=== PATIENT | female | born 1955 | race American Indian/Alaskan Native ===

== ENCOUNTER 2019-01-09 16:16 | Emergency (ER) | payer MEDICARE ==
[2019-01-09 16:35] VITALS: BP 156/91
--- NOTE | 2019-01-09 16:35 | Emergency Department Report ---
Blank Doc - Documentation Documentation: 63 y/o female c/o lip swelling, chest pain and Blood pressure and Headache for the last 3 days.
[2019-01-09 16:58] LABS: Basophils % (Auto) 0.5 % (0.0-1.8); Eosinophils # (Auto) 0.3 K/mm3 (0.0-0.4); Eosinophils % (Auto) 5.1 % (0.0-4.3); Hematocrit 39.3 % (30.3-42.9); Hemoglobin 12.6 gm/dl (10.1-14.3); Lymphocytes # (Auto) 1.7 K/mm3 (1.2-5.4); Lymphocytes % (Auto) 31.1 % (13.4-35.0); Mean Corpuscular HGB Conc 32 % (30-34); Mean Corpuscular Volume 71 fl (79-97); Monocytes # (Auto) 0.4 K/mm3 (0.0-0.8); Monocytes % (Auto) 6.6 % (0.0-7.3); Platelet Count 238 K/mm3 (140-440); Red Cell Distribution Width 17.1 % (13.2-15.2)
--- NOTE | 2019-01-09 17:27 | XRay Report ---
PROCEDURE: XR CHEST ROUTINE 2V TECHNIQUE: Chest radiograph , PA and lateral views. HISTORY: CP COMPARISONS: None . FINDINGS: Heart: Normal. Mediastinum/Vessels: Normal. Lungs/Pleural space: Normal. Bony thorax: No acute osseous abnormality. Life support devices: None. IMPRESSION: No acute cardiopulmonary abnormality. This document is electronically signed by Luara Bowers MD., January 09 2019 05:25:39 PM ET
[2019-01-09 17:34] LABS: Alanine Aminotransferase 12 units/L (7-56); Albumin 4.2 g/dL (3.9-5); BUN/Creatinine Ratio 17; Blood Urea Nitrogen 12 mg/dL (7-17); Calcium 10.1 mg/dL (8.4-10.2); Hemolysis Index 29
[2019-01-09] MEDS ORDERED: TYLENOL PO ONE (19:36)
[2019-01-09] MEDS ORDERED: BENADRYL PO ONE (19:36)
[2019-01-09] MEDS ORDERED: REGLAN PO ONE (19:36)
--- NOTE | 2019-01-09 19:38 | Emergency Department Report ---
ED Chest Pain HPI - General Chief Complaint: Chest Pain Stated Complaint: CHEST PAIN/MOUTH/FACE SWOLLEN/HEADACHE Time Seen by Provider: 01/09/19 19:33 Source: patient Mode of arrival: Ambulatory Limitations: No Limitations - History of Present Illness Initial Comments: pt is a a63 y/o aaf who presents for cp and headache rated as 5/10, pt states recent change in bp medications with similar results, she is now taking hctz 12.5 mg po daily as prescribed by pcp. pain is constant radiating from epigastric region with pressure and bloating, epigastric pain exacerbated headache described as frontal sharp 4/10 , headaches are a recurring problem with htn episodes. There has bee no n/v no dizziness no lightheadedness no sob no back pain no diaphoresis. MD Complaint: chest pain Onset/Timin -: days(s) Onset: during rest Pain Location: epigastric Pain Radiation: none Severity: moderate Severity scale (0 -10): 8 Quality: sharp, pressure Consistency: constant Improves With: antacids, other (bleching ) Worsens With: supine, movement Other Symptoms: burping. denies: cough, leg swelling, palpitations Treatments Prior to Arrival: none - Related Data On Oral Contraceptives: No Home Medications Medication Instructions Recorded Confirmed Last Taken Lovastatin [Altoprev] 20 mg PO QPM 10/30/13 10/30/13 10/30/13 hydroCHLOROthiazide 12.5 mg PO DAILY 10/30/13 10/30/13 10/30/13 [Hydrochlorothiazide] Previous Rx's Medication Instructions Recorded Last Taken Type Meclizine [Antivert] 25 mg PO TID #12 tablet 10/30/13 Unknown Rx Acetaminophen [Non-Aspirin Extra 1,000 mg PO QID PRN #30 tablet 01/09/19 Unknown Rx Strength] Metoclopramide [Reglan] 10 mg PO Q6H PRN #30 tablet 01/09/19 Unknown Rx diphenhydrAMINE [Benadryl CAP] 25 mg PO Q6HR PRN #30 capsule 01/09/19 Unknown Rx Allergies Allergy/AdvReac Type Severity Reaction Status Date / Time Penicillins Allergy Itching Verified 01/09/19 16:18 Heart Score - HEART Score History: Slightly suspicious EKG: Normal Age: 45-65 Risk factors: 1-2 risk factors Troponin: < normal limit HEART Score: 2 ED Review of Systems ROS: Stated complaint: CHEST PAIN/MOUTH/FACE SWOLLEN/HEADACHE Other details as noted in HPI Constitutional: denies: chills, fever Eyes: denies: eye pain, eye discharge, vision change ENT: congestion (sinus congestion). denies: ear pain, throat pain Respiratory: denies: cough, shortness of breath, wheezing Cardiovascular: chest pain Endocrine: no symptoms reported Gastrointestinal: denies: abdominal pain, nausea, diarrhea Genitourinary: denies: urgency, dysuria, discharge Musculoskeletal: denies: back pain, joint swelling, arthralgia Skin: denies: rash, lesions Neurological: headache Psychiatric: anxiety. denies: depression Hematological/Lymphatic: denies: easy bleeding, easy bruising ED Past Medical Hx - Past Medical History Hx Hypertension: Yes Additional medical history: vertigo, HIGH CHOLESTEROL, UTERINE FIBROIDS - Surgical History Past Surgical History?: No - Social History Smoking Status: Never Smoker Substance Use Type: None - Medications Home Medications: Home Medications Medication Instructions Recorded Confirmed Last Taken Type Lovastatin [Altoprev] 20 mg PO QPM 10/30/13 10/30/13 10/30/13 History Meclizine [Antivert] 25 mg PO TID #12 tablet 10/30/13 Unknown Rx hydroCHLOROthiazide 12.5 mg PO DAILY 10/30/13 10/30/13 10/30/13 History [Hydrochlorothiazide] Acetaminophen [Non-Aspirin Extra 1,000 mg PO QID PRN #30 tablet 01/09/19 Unknown Rx Strength] Metoclopramide [Reglan] 10 mg PO Q6H PRN #30 tablet 01/09/19 Unknown Rx diphenhydrAMINE [Benadryl CAP] 25 mg PO Q6HR PRN #30 capsule 01/09/19 Unknown Rx ED Physical Exam - General Limitations: No Limitations General appearance: alert, in no apparent distress - Head Head exam: Present: atraumatic, normocephalic - Eye Eye exam: Present: normal appearance, PERRL, EOMI - ENT ENT exam: Present: normal orophraynx, mucous membranes moist, TM's normal bilaterally, normal external ear exam - Neck Neck exam: Present: normal inspection, full ROM, lymphadenopathy. Absent: tenderness - Respiratory Respiratory exam: Present: normal lung sounds bilaterally. Absent: respiratory distress, wheezes, stridor, chest wall tenderness - Cardiovascular Cardiovascular Exam: Present: regular rate, normal rhythm, normal heart sounds - GI/Abdominal GI/Abdominal exam: Present: soft, tenderness (mild epigastric tenderness to deep palpation), normal bowel sounds. Absent: guarding, rebound, rigid, bruit, hernia - Rectal Rectal exam: Present: deferred - Extremities Exam Extremities exam: Present: normal inspection, full ROM, normal capillary refill. Absent: tenderness, pedal edema, joint swelling, calf tenderness - Back Exam Back exam: Present: normal inspection, full ROM. Absent: tenderness, CVA tenderness (R), CVA tenderness (L), muscle spasm, rash noted - Neurological Exam Neurological exam: Present: alert, oriented X3, CN II-XII intact, normal gait - Psychiatric Psychiatric exam: Present: normal affect, normal mood - Skin Skin exam: Present: warm, dry, intact, normal color. Absent: rash ED Course Vital Signs 01/09/19 16:31 Temperature 98.1 F Pulse Rate 80 Respiratory 18 Rate Blood Pressure 156/91 O2 Sat by Pulse 99 Oximetry CAMRON score - Camron Score Age > 65: (0) No Aspirin use within the Past 7 Days: (0) No 3 or more CAD Risk Factors: (0) No 2 or more Angina events in past 24 hrs: (0) No Known CAD with more than 50% Stenosis: (0) No Elevated Cardiac Markers: (0) No ST Deviation Greater than 0.5mm: (0) No CAMRON Score: 0 ED Medical Decision Making - Lab Data Result diagrams: 01/09/19 16:36 01/09/19 16:36 - Radiology Data Radiology results: report reviewed, image reviewed [address] [address] XRay Report Signed Patient: GRISELDA GAYLE MR#: [id number] : 1955 Acct:[id number] Age/Sex: 63 / F ADM Date: 01/09/19 Loc: ED Attending Dr: Ordering Physician: GIORGIO BRAND Date of Service: 01/09/19 Procedure(s): XR chest routine 2V Accession Number(s): [id number] cc: GIORGIO BRAND Fluoro Time In Minutes: PROCEDURE: XR CHEST ROUTINE 2V TECHNIQUE: Chest radiograph , PA and lateral views. HISTORY: CP COMPARISONS: None . FINDINGS: Heart: Normal. Mediastinum/Vessels: Normal. Lungs/Pleural space: Normal. Bony thorax: No acute osseous abnormality. Life support devices: None. IMPRESSION: No acute cardiopulmonary abnormality. This document is electronically signed by Laura Bowers MD., January 09 2019 05:25:39 PM ET Transcribed By: [facility] Dictated By: LAURA BOWERS MD Electronically Authenticated By: LAURA BOWERS MD Signed Date/Time: 01/09/191726 DD/ 05 TD/TT: 01/09/191705 - Medical Decision Making ekg: nsr, no st elevated mi, cxr: normal , headache is resolved to 0/10 ,Heart score is :0, CAMRON score is: 0 pt is currently a/o x 3, ambulatory with steady gait. pt will follow up with pcp tomorrow, continue bp medications as prescribed, take tylenol, benadryl, reglan prn for headache, Dr. Florence, pt dc'd to home in stable condition at this time. pt verbalized agreement and understanding with discharge plan. Critical care attestation.: If time is entered above; I have spent that time in minutes in the direct care of this critically ill patient, excluding procedure time. ED Disposition Clinical Impression: Headache Qualifiers: Headache type: unspecified Headache chronicity pattern: acute headache Intractability: not intractable Qualified Code(s): R51 - Headache Chest pain Qualifiers: Chest pain type: unspecified Qualified Code(s): R07.9 - Chest pain, unspecified Disposition: DC-01 TO HOME OR SELFCARE Is pt being admited?: No Does the pt Need Aspirin: No Condition: Stable Instructions: Chest Pain (ED), Acute Headache (ED) Prescriptions: diphenhydrAMINE [Benadryl CAP] 25 mg PO Q6HR PRN #30 capsule PRN Reason: Headache Acetaminophen [Non-Aspirin Extra Strength] 1,000 mg PO QID PRN #30 tablet PRN Reason: Headache Metoclopramide [Reglan] 10 mg PO Q6H PRN #30 tablet PRN Reason: Headache Referrals: GRISELDA RUVALCABA EEG TECH-C [Primary Care Provider] - 3-5 Days Forms: Work/School Release Form(ED) Time of Disposition: 22:25
== END 2019-01-09 22:37 | disposition home or self-care (01) ==
LOC: ED 16:16
DX: R07.89 Other chest pain (principal); R51 Headache; I10 Essential (primary) hypertension; E78.00 Pure hypercholesterolemia, unspecified; R10.13 Epigastric pain; Z88.0 Allergy status to penicillin
CPT/HCPCS: 36415; 71046; 80053; 84484; 85025; 93005; 93010; 99284

== ENCOUNTER 2019-06-26 20:15 | Observation (INO) | payer MEDICARE ==
[2019-06-26] MEDS ORDERED: ASPIRIN 325 MG TAB PO ONE (20:47)
--- NOTE | 2019-06-26 20:48 | Event Note ---
ED Screening Note Date of service: 06/26/19 Time: 20:45 ED Screening Note: This is a 64 y.o. F. that presents to the ER with left sided chest pain and numbness to both hands. PMH of HTN Patient states she is unable to get blood pressure down. She went to her PCP last week for hypertension and medication was changed. This initial assessment/diagnostic orders/clinical plan/treatment(s) is/are subject to change based on patients health status, clinical progression and re- assessment by fellow clinical providers in the ED. Further treatment and workup at subsequent clinical providers discretion. Patient/guardian urged not to elope from the ED as their condition may be serious if not clinically assessed and managed. Initial orders include: Labs, EKG, & CXR
--- NOTE | 2019-06-26 21:23 | XRay Report ---
CHEST 2 VIEWS INDICATION / CLINICAL INFORMATION: Chest Pain. COMPARISON: 01/09/19 FINDINGS: SUPPORT DEVICES: None. HEART / MEDIASTINUM: No significant abnormality. LUNGS / PLEURA: No significant pulmonary or pleural abnormality. No pneumothorax. ADDITIONAL FINDINGS: No significant additional findings. IMPRESSION: 1. No acute findings. No change. Signer Name: Harpreet Agiular MD Signed: 06/26/2019 9:19 PM Workstation Name: [id number]
--- NOTE | 2019-06-26 22:29 | Emergency Department Report ---
HPI - General Chief Complaint: Chest Pain Time Seen by Provider: 06/26/19 20:45 - HPI HPI: Room 19 The patient is a 64-year-old female presenting with a chief complaint of headache and chest pain. The patient is afebrile which she's had an intermittent headache. This morning the patient states she developed bilateral hand numbness and sharp intermittent pain in her left chest. Patient denies shortness of breath, nausea/vomiting or diaphoresis. The patient states she developed tingling in her left lower extremity. Patient denies weakness or dy sarthria. The patient states she's never had a stress test or cardiac catheterization ED Past Medical Hx - Past Medical History Previous Medical History?: Yes Hx Hypertension: Yes Additional medical history: vertigo, HIGH CHOLESTEROL, UTERINE FIBROIDS - Surgical History Additional Surgical History: Cataract surgery - Family History Family history: no significant - Social History Smoking Status: Never Smoker Substance Use Type: None - Medications Home Medications: Home Medications Medication Instructions Recorded Confirmed Last Taken Type Hydralazine HCl 50 mg PO BID 06/26/19 06/26/19 Unknown History Loratadine 10 mg PO DAILY 06/26/19 06/26/19 Unknown History methylPREDNISolone [Medrol] 4 mg PO Q12HR 06/26/19 06/26/19 Unknown History raNITIdine HCl [Zantac] 150 mg PO HS 06/26/19 06/26/19 Unknown History ED Review of Systems ROS: Stated complaint: CHEST PAIN/HAND NUMBNESS/HIGH BP Other details as noted in HPI Constitutional: no symptoms reported Eyes: denies: eye pain ENT: denies: throat pain Respiratory: denies: shortness of breath Cardiovascular: chest pain Endocrine: no symptoms reported Gastrointestinal: denies: nausea, vomiting Genitourinary: denies: dysuria Musculoskeletal: denies: back pain Neurological: headache, paresthesias. denies: weakness Physical Exam - Physical Exam Vital Signs: Vital Signs 06/26/19 06/26/19 20:20 21:20 Temperature 98.0 F 98.2 F Pulse Rate 76 64 Respiratory 12 Rate Blood Pressure 183/95 Blood Pressure 165/84 [Left] O2 Sat by Pulse 97 97 Oximetry Physical Exam: GENERAL: The patient is well-developed well-nourished female lying on stretcher not appearing to be in acute distress. [] HEENT: Normocephalic. Atraumatic. Extraocular motions are intact. Patient has moist mucous membranes. NECK: Supple. No meningitic signs are noted. There is no adenopathy noted. CHEST/LUNGS: Clear to auscultation. There is no respiratory distress noted. HEART/CARDIOVASCULAR: Regular. There is no tachycardia. There is no gallop rub or murmur. ABDOMEN: Abdomen is soft, nontender. Patient has normal bowel sounds. There is no abdominal distention. SKIN: There is no rash. There is no edema. There is no diaphoresis. NEURO: The patient is awake, alert, and oriented. The patient is cooperative. The patient has no focal neurologic deficits. The patient has normal speech. Cranial nerves II through XII grossly intact, no drift. Patient able to hold either leg at 30 for 5 seconds count. Equal sensation to light touch bilaterally throughout although patient states she feels as though her left leg is "tingling." NIH stroke scale =0 MUSCULOSKELETAL: There is no evidence of acute injury. ED Course Vital Signs 06/26/19 06/26/19 20:20 21:20 Temperature 98.0 F 98.2 F Pulse Rate 76 64 Respiratory 12 Rate Blood Pressure 183/95 Blood Pressure 165/84 [Left] O2 Sat by Pulse 97 97 Oximetry ED Medical Decision Making - Lab Data Result diagrams: 06/26/19 23:06 06/26/19 23:06 Laboratory Tests 06/26/19 06/26/19 23:06 23:06 WBC 7.6 RBC 5.44 H Hgb 12.5 Hct 39.3 MCV 72 L MCH 23 L MCHC 32 RDW 17.2 H Plt Count 235 Lymph % (Auto) 36.4 H [place] % (Auto) 7.2 Eos % (Auto) 1.1 Baso % (Auto) 0.6 Lymph # 2.8 [place] # 0.5 Eos # 0.1 Baso # 0.0 Seg Neutrophils % 54.7 Seg Neutrophils # 4.2 Sodium 141 Potassium 4.4 Chloride 104.0 Carbon Dioxide 27 Anion Gap 14 BUN 17 Creatinine 0.9 Estimated GFR > 60 BUN/Creatinine Ratio 19 Glucose 94 Calcium 9.9 Troponin T < 0.010 - EKG Data -: EKG Interpreted by Nm EKG shows normal: sinus rhythm Rate: normal - EKG Data When compared to previous EKG there are: previous EKG unavailable Interpretation: other (no ischemic changes seen) 06/26/19 23:33 EKG #2 sinus bradycardia at 55 bpm. - Radiology Data Radiology results: report reviewed (chest x-ray, CT head), image reviewed (chest x-ray, CT head) interpreted by me: Chest x-ray-no focal infiltrates, no pneumothorax [address] [address] XRay Report Signed Patient: GRISELDA GAYLE MR#: [id number] : 1955 Acct:[id number] Age/Sex: 64 / F ADM Date: 06/26/19 Loc: ED Attending Dr: Ordering Physician: ANIA DAS Date of Service: 06/26/19 Procedure(s): XR chest routine 2V Accession Number(s): [id number] cc: ANIA DAS Fluoro Time In Minutes: CHEST 2 VIEWS INDICATION / CLINICAL INFORMATION: Chest Pain. COMPARISON: 01/09/19 FINDINGS: SUPPORT DEVICES: None. HEART / MEDIASTINUM: No significant abnormality. LUNGS / PLEURA: No significant pulmonary or pleural abnormality. No pneumothorax. ADDITIONAL FINDINGS: No significant additional findings. IMPRESSION: 1. No acute findings. No change. Signer Name: Harpreet Aguilar MD Signed: 06/26/2019 9:19 PM Workstation Name: [id number] Transcribed By: DT Dictated By: Brice Aguilar MD Electronically Authenticated By: Brice Aguilar MD Signed Date/Time: 06/26/192118 DD/ 17 TD/TT: [address] [address] Cat Scan Report Signed Patient: GRISELDA GAYLE MR#: [id number] : 1955 Acct:[id number] Age/Sex: 64 / F ADM Date: 06/26/19 Loc: ED Attending Dr: Ordering Physician: LIZABETH MCNAMARA MD Date of Service: 06/26/19 Procedure(s): CT head/brain wo con Accession Number(s): [id number] cc: LIZABETH MCNAMARA MD CT head/brain wo con INDICATION / CLINICAL INFORMATION: headache, bilateral hand numbness, LLE tingling. TECHNIQUE: All CT scans at this location are performed using CT dose reduction for ALARA by means of automated exposure cont rol. COMPARISON: None available. FINDINGS: No intracranial hemorrhage. No abnormal extra-axial fluid collection. The ventricular system and basilar cisterns are normal. No mass effect or evidence of large territorial infarction. Visualized portions of the paranasal sinuses are normal and no osseous abnormalities are identified. IMPRESSION: 1. Negative nonenhanced head CT. Signer Name: Gagan Becerril MD Signed: 06/26/2019 11:19 PM Workstation Name: [id number] Transcribed By: GA Dictated By: Gagan Becerril MD Electronically Authenticated By: Gagan Becerril MD Signed Date/Time: 06/26/192318 DD/ 17 TD/TT: - Differential Diagnosis ACS, hypertensive urgency, TIA, intracranial mass Critical care attestation.: If time is entered above; I have spent that time in minutes in the direct care of this critically ill patient, excluding procedure time. ED Disposition Clinical Impression: Chest pain, Left leg paresthesias Disposition: -09 OP ADMIT IP TO THIS HOSP Is pt being admited?: Yes Does the pt Need Aspirin: Yes Condition: Fair Instructions: Chest Pain (ED) Time of Disposition: 23:37 (hospitalist paged (Dr Nubia Villalobos))
[2019-06-26 23:24] LABS: Basophils % (Auto) 0.6 % (0.0-1.8); Eosinophils # (Auto) 0.1 K/mm3 (0.0-0.4); Eosinophils % (Auto) 1.1 % (0.0-4.3); Hematocrit 39.3 % (30.3-42.9); Hemoglobin 12.5 gm/dl (10.1-14.3); Lymphocytes # (Auto) 2.8 K/mm3 (1.2-5.4); Lymphocytes % (Auto) 36.4 % (13.4-35.0); Mean Corpuscular HGB Conc 32 % (30-34); Mean Corpuscular Volume 72 fl (79-97); Monocytes # (Auto) 0.5 K/mm3 (0.0-0.8); Monocytes % (Auto) 7.2 % (0.0-7.3); Platelet Count 235 K/mm3 (140-440); Red Blood Count 5.44 M/mm3 (3.65-5.03); Red Cell Distribution Width 17.2 % (13.2-15.2)
--- NOTE | 2019-06-26 23:24 | Cat Scan Report ---
CT head/brain wo con INDICATION / CLINICAL INFORMATION: headache, bilateral hand numbness, LLE tingling. TECHNIQUE: All CT scans at this location are performed using CT dose reduction for ALARA by means of automated e xposure control. COMPARISON: None available. FINDINGS: No intracranial hemorrhage. No abnormal extra-axial fluid collection. The ventricular system and basilar cisterns are normal. No mass effect or evidence of large territorial infarction. Visualized portions of the paranasal sinuses are normal and no osseous abnormalities are identified. IMPRESSION: 1. Negative nonenhanced head CT. Signer Name: Gagan Becerril MD Signed: 06/26/2019 11:19 PM Workstation Name: [id number]
[2019-06-26 23:35] LABS: BUN/Creatinine Ratio 19; Blood Urea Nitrogen 17 mg/dL (7-17); Calcium 9.9 mg/dL (8.4-10.2); Hemolysis Index 5
[2019-06-26] MEDS ORDERED: NITROGLYCERIN 2% OINT 1 GM TP ONE (23:36)
[2019-06-26 23:52] LABS: Creatine Kinase MB 3.2 ng/mL (0.0-4.0)
--- NOTE | 2019-06-26 23:56 | History and Physical Report ---
<SCOTT GONCALVES - Last Filed: 06/27/19 01:12> History of Present Illness Date of examination: 06/26/19 Date of admission: 06/26/2019 Chief complaint: Chest pain with numbness/tingling to left hand, and elevated blood pressure History of present illness: 64-year-old -[place] female with history of hypertension, hyperlipidemia, uterine fibroids, vertical who presents to [facility] with complaints of left-sided chest pain with radiation to left arm, numbness/tingling of left hand, generalized headache, elevated blood pressure. She states that she has been experiencing in elevated blood pressure readings for the past 2 weeks despite of being compliant with her antihypertensive meds. She went to her PCP approximately one week ago and her BP was also found to be elevated. During the office visit IV antihypertensive meds were given to lower BP before allowing patient to leave. Additionally her antihypertensive meds were adjusted for better control. Patient states that she was getting ready for oriental orthodox this morning, when she started to experience generalized headache. She describes the headache as tight and rates it 6/10. He immediately checked her blood pressure and got a reading of 171/103. Patient took her blood pressure meds and then rechecked her blood pressure but it was still elevated. Shortly after she began experiencing left-sided chest pain with radiation to left upper extremity and numbness/tingling to left hand. She describes her chest pain as sharp and rates it 8/10. She decided to come into the ED for further evaluation. She denies nausea, emesis, diaphoresis, or shortness of breath. Past History Past Medical History: hypertension, hyperlipidemia, other (uterine fibroids, vertical) Past Surgical History: Other (Cataract surgery) Social history: lives with family Family history: no significant family history Medications and Allergies Allergies Allergy/AdvReac Type Severity Reaction Status Date / Time Penicillins Allergy Itching Verified 01/09/19 16:18 Home Medications Medication Instructions Recorded Confirmed Last Taken Type Hydralazine HCl 50 mg PO BID 06/26/19 06/26/19 Unknown History Loratadine 10 mg PO DAILY 06/26/19 06/26/19 Unknown History methylPREDNISolone [Medrol] 4 mg PO Q12HR 06/26/19 06/26/19 Unknown History raNITIdine HCl [Zantac] 150 mg PO HS 06/26/19 06/26/19 Unknown History Active Meds: Active Medications Enoxaparin Sodium (Lovenox) 30 mg SUB-Q QDAY MARIAA Review of Systems All systems: negative Cardiovascular: chest pain, high blood pressure Neurological: numbness (left hand), tingling (left hand) Exam - Physical Exam Narrative exam: General appearance: Present: No acute distress, alert and orientedx3, pleasant, well-developed, well-nourished adult female - EENT Eyes: Present: PERRL, EOM intact ENT: hearing intact, normal dentition - Neck Neck: Present: supple, normal ROM - Respiratory Respiratory effort: Non-labored Respiratory: bilateral: CTA - Cardiovascular Heart rate:55 (bpm) Rhythm:SB Heart Sounds: Present: S1, S2. - Extremities Extremities: no ischemia, pulses intact - Peripheral Assessment Peripheral Pulses: within normal limits - Abdominal General gastrointestinal: soft, non-tender, normal bowel sounds - Integumentary Integumentary: Present: warm, dry - Musculoskeletal Musculoskeletal: able to move all extremities -Neurological Neurological: CN II-XII grossly intact - Psychiatric Psychiatric: cooperative - Constitutional Vitals: Temp Pulse Resp BP Pulse Ox 98.2 F 61 18 154/99 99 06/26/19 21:20 06/26/19 23:41 06/26/19 23:00 06/26/19 23:41 06/26/19 23:00 Results - Labs CBC & Chem 7: 06/26/19 23:06 06/26/19 23:06 Labs: Laboratory Last Values WBC 7.6 K/mm3 (4.5-11.0) 06/26/19 23:06 RBC 5.44 M/mm3 (3.65-5.03) H 06/26/19 23:06 Hgb 12.5 gm/dl (10.1-14.3) 06/26/19 23:06 Hct 39.3 % (30.3-42.9) 06/26/19 23:06 MCV 72 fl (79-97) L 06/26/19 23:06 MCH 23 pg (28-32) L 06/26/19 23:06 MCHC 32 % (30-34) 06/26/19 23:06 RDW 17.2 % (13.2-15.2) H 06/26/19 23:06 Plt Count 235 K/mm3 (140-440) 06/26/19 23:06 Lymph % (Auto) 36.4 % (13.4-35.0) H 06/26/19 23:06 [place] % (Auto) 7.2 % (0.0-7.3) 06/26/19 23:06 Eos % (Auto) 1.1 % (0.0-4.3) 06/26/19 23:06 Baso % (Auto) 0.6 % (0.0-1.8) 06/26/19 23:06 Lymph # 2.8 K/mm3 (1.2-5.4) 06/26/19 23:06 [place] # 0.5 K/mm3 (0.0-0.8) 06/26/19 23:06 Eos # 0.1 K/mm3 (0.0-0.4) 06/26/19 23:06 Baso # 0.0 K/mm3 (0.0-0.1) 06/26/19 23:06 Seg Neutrophils % 54.7 % (40.0-70.0) 06/26/19 23:06 Seg Neutrophils # 4.2 K/mm3 (1.8-7.7) 06/26/19 23:06 Sodium 141 mmol/L (137-145) 06/26/19 23:06 Potassium 4.4 mmol/L (3.6-5.0) 06/26/19 23:06 Chloride 104.0 mmol/L (98-107) 06/26/19 23:06 Carbon Dioxide 27 mmol/L (22-30) 06/26/19 23:06 Anion Gap 14 mmol/L 06/26/19 23:06 BUN 17 mg/dL (7-17) 06/26/19 23:06 Creatinine 0.9 mg/dL (0.7-1.2) 06/26/19 23:06 Estimated GFR > 60 ml/min 06/26/19 23:06 BUN/Creatinine Ratio 19 % 06/26/19 23:06 Glucose 94 mg/dL (65-100) 06/26/19 23:06 Calcium 9.9 mg/dL (8.4-10.2) 06/26/19 23:06 Total Creatine Kinase 78 units/L (30-135) 06/26/19 23:06 CK-MB (CK-2) 3.2 ng/mL (0.0-4.0) 06/26/19 23:06 CK-MB (CK-2) Rel Index 4.1 (0-4) H 06/26/19 23:06 Troponin T < 0.010 ng/mL (0.00-0.029) 06/26/19 23:06 - Imaging and Cardiology Imaging and Cardiology: CT Head: FINDINGS: No intracranial hemorrhage. No abnormal extra-axial fluid collection. The ventricular system and basilar cisterns are normal. No mass effect or evidence of large territorial infarction. Visualized portions of the paranasal sinuses are normal and no osseous abnormalities are identified. IMPRESSION: 1. Negative nonenhanced head CT. CXR: FINDINGS: SUPPORT DEVICES: None. HEART / MEDIASTINUM: No significant abnormality. LUNGS / PLEURA: No significant pulmonary or pleural abnormality. No pneumothorax. ADDITIONAL FINDINGS: No significant additional findings. IMPRESSION: 1. No acute findings. No change. Assessment and Plan Assessment and plan: 64-year-old -[place] female with history of hypertension, hyperlipidemia, uterine fibroids, vertical who presents to [facility] with complaints of left-sided chest pain with radiation to left arm, numbness/tin gling of left hand, generalized headache, elevated blood pressure. Will admit as OBS for further evaluation. Acute Chest Pain R/O ACS -Initiate chest pain protocol -Continuous telemetry monitoring -Continue supportive care -Pain mgmt -Stress tests (treadmill) pending -Troponin negative x 1, will continue to trend -On ASA and Statin -Lipid panel pending Hypertensive urgency -BP on admission 183/95 -Hx Hypertension -Continue to monitor BP -Resume home antihypertensive meds to optimize BP -IV antihypertensive when necessary Headache -Patient complained of generalized headache -CT head negative -Likely due to elevated BP -Continue supportive care DVT PPX -on Lovenox Advance Directives: No VTE prophylaxis?: Mechanical Plan of care discussed with patient/family: Yes <ISIDRA CARVALHO - Last Filed: 06/27/19 04:28> History of Present Illness Date of admission: 06/26/19 23:46 Medications and Allergies Active Meds: Active Medications Acetaminophen (Tylenol) 650 mg PO Q4H PRN PRN Reason: Pain MILD(1-3)/Fever >100.5/BROWN Aspirin (Baby Aspirin) 81 mg PO QDAY [facility] Atorvastatin Calcium (Lipitor) 40 mg PO QHS [facility] Enoxaparin Sodium (Lovenox) 40 mg SUB-Q QDAY@1000 [facility]IAA Famotidine (Pepcid) 20 mg PO QHS [facility] Hydralazine HCl (Apresoline) 10 mg IV Q4HR PRN PRN Reason: Blood Pressure Hydralazine HCl (Apresoline) 50 mg PO BID [facility] Hydromorphone HCl (Dilaudid) 0.5 mg IV Q3H PRN PRN Reason: Pain , Severe (7-10) Loratadine (Claritin) 10 mg PO DAILY [facility] Morphine Sulfate (Morphine) 2 mg IV Q4H PRN PRN Reason: Pain, Moderate (4-6) Nitroglycerin (Nitrostat) 0.4 mg SL Q5M PRN PRN Reason: Chest Pain Ondansetron HCl (Zofran) 4 mg IV Q6H PRN PRN Reason: Nausea And Vomiting Sodium Chloride (Sodium Chloride Flush Syringe 10 Ml) 10 ml IV BID [facility] Sodium Chloride (Sodium Chloride Flush Syringe 10 Ml) 10 ml IV PRN PRN PRN Reason: LINE FLUSH Exam - Constitutional Vitals: Temp Pulse Resp BP Pulse Ox 98.0 F 57 L 18 131/82 100 06/27/19 04:05 06/27/19 04:05 06/27/19 04:05 06/27/19 04:05 06/27/19 04:05 Results - Labs CBC & Chem 7: 06/26/19 23:06 06/26/19 23:06 Labs: Laboratory Last Values WBC 7.6 K/mm3 (4.5-11.0) 06/26/19 23:06 RBC 5.44 M/mm3 (3.65-5.03) H 06/26/19 23:06 Hgb 12.5 gm/dl (10.1-14.3) 06/26/19 23:06 Hct 39.3 % (30.3-42.9) 06/26/19 23:06 MCV 72 fl (79-97) L 06/26/19 23:06 MCH 23 pg (28-32) L 06/26/19 23:06 MCHC 32 % (30-34) 06/26/19 23:06 RDW 17.2 % (13.2-15.2) H 06/26/19 23:06 Plt Count 235 K/mm3 (140-440) 06/26/19 23:06 Lymph % (Auto) 36.4 % (13.4-35.0) H 06/26/19 23:06 [place] % (Auto) 7.2 % (0.0-7.3) 06/26/19 23:06 Eos % (Auto) 1.1 % (0.0-4.3) 06/26/19 23:06 Baso % (Auto) 0.6 % (0.0-1.8) 06/26/19 23:06 Lymph # 2.8 K/mm3 (1.2-5.4) 06/26/19 23:06 [place] # 0.5 K/mm3 (0.0-0.8) 06/26/19 23:06 Eos # 0.1 K/mm3 (0.0-0.4) 06/26/19 23:06 Baso # 0.0 K/mm3 (0.0-0.1) 06/26/19 23:06 Seg Neutrophils % 54.7 % (40.0-70.0) 06/26/19 23:06 Seg Neutrophils # 4.2 K/mm3 (1.8-7.7) 06/26/19 23:06 Sodium 141 mmol/L (137-145) 06/26/19 23:06 Potassium 4.4 mmol/L (3.6-5.0) 06/26/19 23:06 Chloride 104.0 mmol/L (98-107) 06/26/19 23:06 Carbon Dioxide 27 mmol/L (22-30) 06/26/19 23:06 Anion Gap 14 mmol/L 06/26/19 23:06 BUN 17 mg/dL (7-17) 06/26/19 23:06 Creatinine 0.9 mg/dL (0.7-1.2) 06/26/19 23:06 Estimated GFR > 60 ml/min 06/26/19 23:06 BUN/Creatinine Ratio 19 % 06/26/19 23:06 Glucose 94 mg/dL (65-100) 06/26/19 23:06 Calcium 9.9 mg/dL (8.4-10.2) 10/13/19 23:06 Total Creatine Kinase 78 units/L (30-135) 06/26/19 23:06 CK-MB (CK-2) 3.2 ng/mL (0.0-4.0) 06/26/19 23:06 CK-MB (CK-2) Rel Index 4.1 (0-4) H 06/26/19 23:06 Troponin T < 0.010 ng/mL (0.00-0.029) 06/26/19 23:06 Assessment and Plan Assessment and plan: 64-year-old woman with a history of hypertension comes emergency room complaining of left-sided chest pain, headache, numbness of hands. Patient would hypertensive urgency, S pain, agree with stress test for blood pressure control
[2019-06-27] MEDS ORDERED: hydrALAZINE 20 MG/1 ML INJ IV PRN (00:45)
[2019-06-27] MEDS ORDERED: NITROGLYCERIN 0.4 MG TAB SUBL SL PRN (00:47)
[2019-06-27] MEDS ORDERED: ACETAMINOPHEN 325 MG TAB PO PRN (00:49)
[2019-06-27] MEDS ORDERED: MORPHINE 2 MG/1 ML INJ IV PRN (00:49)
[2019-06-27] MEDS ORDERED: ONDANSETRON 4 MG/2 ML INJ IV PRN (00:49)
[2019-06-27] MEDS ORDERED: HYDROmorphone 1 MG/1 ML INJ IV PRN (00:49)
[2019-06-27 05:14] LABS: Chol/HDL Ratio 2.97 %
[2019-06-27 08:05] LABS: Creatine Kinase MB 2.8 ng/mL (0.0-4.0)
[2019-06-27] MEDS ORDERED: ENOXAPARIN 30 MG/0.3 ML INJ SUB-Q SCH (10:00)
[2019-06-27] MEDS ORDERED: ASPIRIN 81 MG TAB CHEW PO SCH (10:00)
[2019-06-27] MEDS ORDERED: LORATADINE 10 MG TAB PO SCH (10:00)
[2019-06-27] MEDS ORDERED: hydrALAZINE 25 MG TAB PO SCH (10:00)
[2019-06-27] MEDS ORDERED: NON-FORMULARY EACH (Hydralazine Hcl [Hydralazine Hcl] 50 MG) PO SCH (10:00)
[2019-06-27] MEDS ORDERED: ENOXAPARIN 40 MG/0.4 ML INJ SUB-Q SCH (10:00)
--- NOTE | 2019-06-27 12:48 | Discharge Summary ---
Providers - Providers Date of Admission: 06/26/19 23:46 Date of discharge: 06/27/19 Attending physician: YANICK MCGINNIS Primary care physician: GRISELDA RUVALCABA Hospitalization Condition: Fair Pertinent studies: Head CT CXR MPI stress test Hospital course: 64-year-old -[place] female with history of hypertension, hyperlipidemia, uterine fibroids, vertical who presents to [facility] with complaints of left-sided chest pain with radiation to left arm, numbness/tingling of left hand, generalized headache, elevated blood pressure. Patient was admitted as OBS for further evaluation. Patient was evaluated in the ER, initial cardiac enzyme and EKG was unremarkable, chest x-ray showed no infiltrates. Patient was admitted and underwent myocardial stress test which was normal. Her blood pressure was monitored and resumed on home medications. Patient was then discharged home in stable condition with outpatient follow-up. Discharge diagnosis and Mx: Acute Chest Pain, Ruled out ACS - likely from GERD or elevated BP -Initiated chest pain protocol -s/p Continuous telemetry monitoring -Stress tests (treadmill) ordered and was normal -Troponins negative, cont On ASA and Statin Hypertensive urgency -BP on admission 183/95 -Resumed home antihypertensives, meds to optimize BP and ordered IV antihyperte nsive when necessary Headache, resolved -Patient complained of generalized headache -CT head negative -Likely due to elevated BP -provided supportive care DVT PPX -on Lovenox Disposition: DC-01 TO HOME OR SELFCARE Time spent for discharge: 34 minutes Core Measure Documentation - Palliative Care Palliative Care/ Comfort Measures: Not Applicable - Core Measures Any of the following diagnoses?: none Exam - Physical Exam Narrative exam: GENERAL: well-developed and well-nourished elderly female lying on bed appeared to be in no discomfort. HEENT: Normocephalic. Atraumatic. No conjunctival congestion or icterus. Patient has moist mucous membranes. NECK: Supple. Trachea midline. CHEST/LUNGS: Clear to auscultated bilaterally, breathing nonlabored. No wheezes crackles or rhonchi. HEART/CARDIOVASCULAR: Regular in rate and rhythm. S1 and S2 positive. ABDOMEN: Abdomen is soft, nontender. Patient has normal bowel sounds. SKIN: There is no rash. Warm and dry. NEURO: No focal motor deficit. Follows command. MUSCULOSKELETAL: No joint effusion or tenderness. EXTRIMITY: No edema, no cyanosis or clubbing. PSYCH: Cooperative. - Constitutional Vitals: Temp Pulse Resp BP Pulse Ox 98.1 F 70 18 137/79 99 06/27/19 12:34 06/27/19 12:34 06/27/19 12:34 06/27/19 12:34 06/27/19 12:34 Plan Activity: advance as tolerated Weight Bearing Status: Weight Bear as Tolerated Diet: low fat, low salt Special Instructions: record daily BP diary Follow up with: GRISELDA RUVALCABA NP-C [Primary Care Provider] - 7 Days Prescriptions: Aspirin [Aspirin BABY CHEW TAB] 81 mg PO QDAY #30 tab.chew Pantoprazole [Protonix] 40 mg PO QDAY #30 tablet
[2019-06-27 13:04] LABS: Creatine Kinase MB 2.9 ng/mL (0.0-4.0)
[2019-06-27 13:14] VITALS: BP 136/90
[2019-06-27] MEDS ORDERED: NON-FORMULARY EACH (Ranitidine Hcl [Zantac] 150 MG) PO SCH (22:00)
[2019-06-27] MEDS ORDERED: FAMOTIDINE 20 MG TAB PO SCH (22:00)
--- NOTE | 2019-06-27 22:49 | Treadmill Report ---
STRESS TEST REPORT REASON FOR TEST: Chest pain. The patient exercised for 6 minutes of a Scooby protocol, completing stage II and achieving 7 mets. Peak heart rate was 132 beats per minute. Peak blood pressure was 169/88. There was no chest pain. Test was stopped for fatigue. Baseline ECG was sinus rhythm. With exercise, there were no ST changes of ischemia. No significant dysrhythmias were noted. CONCLUSION: 1. Average exercise capacity. 2. No chest pain. 3. No ST changes of ischemia. 4. No significant arrhythmias. This is a negative exercise ECG test. JOB# [id number] CA/NTS
== END 2019-06-27 14:53 | disposition home or self-care (01) ==
LOC: ED 20:15 → 4A 23:46
PROVIDERS: ADMIT Internal Medicine; ATTEND Internal Medicine
DX: R07.89 Other chest pain (principal); I16.0 Hypertensive urgency; I10 Essential (primary) hypertension; E78.5 Hyperlipidemia, unspecified; R51 Headache; D25.9 Leiomyoma of uterus, unspecified; R20.2 Paresthesia of skin; Z98.49 Cataract extraction status, unspecified eye; Z79.82 Long term (current) use of aspirin
CPT/HCPCS: 36415; 70450; 71046; 80048; 80061; 82550; 82553; 84484; 85025; 93005; 93010; 93017; G0378; J1650; 96372